=== PATIENT | male | born 1995 | race Caucasian/White ===

== ENCOUNTER 2016-11-22 17:28 | Emergency (ER) | payer SELFPAY ==
[~2016-11-22] VITALS: Wt 87.1 kg
[~2016-11-22 17:28] MED LIST: ADVAIR 250/501 EA INH; ALAVERT10 MG PO; AMOXIL500 MG PO; Flovent 220 M220 MCG INH; NAPROSYN375 MG PO; PEN-VK500 MG PO; PHENERGAN W/DM120 ML PO; PROVENTIL0.09 MG/AC IH; SINGULAIR10 MG PO; ZYRTEC5 MG PO
[2016-11-22 17:54] VITALS: BP 128/74
[2016-11-22] MEDS ORDERED: IBUPROFEN600 MG PO (20:01)
== END 2016-11-22 20:30 | disposition home or self-care (01) ==
LOC: ED 17:28
DX: M25.462 Effusion, left knee (principal); F17.200 Nicotine dependence, unspecified, uncomplicated; X50.9XXA Other and unspecified overexertion or strenuous movements or postures, initial encounter; Y93.61 Activity, american tackle football; Y92.321 Football field as the place of occurrence of the external cause; Y99.9 Unspecified external cause status

== ENCOUNTER 2016-12-26 13:37 | Emergency (ER) | payer SELFPAY ==
[~2016-12-26] VITALS: Ht 190.5 cm; Wt 88.5 kg
[~2016-12-26 13:37] MED LIST changes: +IBUPROFEN600 MG PO
[2016-12-26 13:59] VITALS: BP 140/74
[2016-12-26] MEDS ORDERED: CEFADROXIL500 M1 PO (14:29)
== END 2016-12-26 14:44 | disposition home or self-care (01) ==
LOC: ED 13:37
DX: N48.29 Other inflammatory disorders of penis (principal); Z20.2 Contact with and (suspected) exposure to infections with a predominantly sexual mode of transmission; F17.200 Nicotine dependence, unspecified, uncomplicated

== ENCOUNTER 2018-03-27 22:12 | Emergency (ER) | payer SELFPAY ==
[~2018-03-27] VITALS: Ht 187.9 cm; Wt 83.9 kg
[~2018-03-27 22:12] MED LIST changes: +CEFADROXIL500 M1 PO
[2018-03-27 22:50] LABS: BASO # 0.1 10*3/uL (0.0-0.1); BASO % 0.4 % (0.0-1.0); EOS % 0.1 % (1.0-4.0); HEMATOCRIT 43.7 % (42.0-52.0); HEMOGLOBIN 14.5 g/dl (14.0-18.0); LYMPH # 2.4 10*3/uL (1.3-4.4); LYMPH % 14.5 % (27.0-41.0); MEAN CELL VOLUME 93.6 fl (80.0-94.0); MEAN CORPUSCULAR HGB CONC 33.2 g/dl (33.0-37.0); MEAN PLATELET VOLUME 9.5 fl (9.6-12.3); MONO # 1.4 10*3/uL (0.1-1.0); MONO % 8.5 % (3.0-9.0); NEUT # 12.4 10*3/uL (2.3-7.9); NEUT % 76.2 % (47.0-73.0); PLATELET COUNT AUTOMATED 244 10*3/uL (130-400); RED BLOOD COUNT 4.67 10*6/uL (4.50-5.90); RED CELL DISTRI WIDTH 15.3 % (0-14.5); WHITE BLOOD COUNT 16.2 10*3/uL (4.8-10.8)
[2018-03-27 23:01] LABS: ACT PARTIAL THROMBO TIME 21.8 SECONDS (19.5-32.1)
[2018-03-27 23:07] LABS: ALBUMIN 4.2 gm/dl (3.1-4.5); ALKALINE PHOSPHATASE 67 U/L (45-117); BUN 11 mg/dl (7-24); CHLORIDE 105 mmol/L (98-107); CREATININE 1.03 mg/dL (0.70-1.30); POTASSIUM 3.8 mmol/L (3.5-5.1); SGOT/AST 10 IU/L (3-35); SGPT/ALT 17 U/L (12-78); SODIUM 141 mmol/L (136-145); TOTAL PROTEIN 7.5 gm/dL (6.4-8.2)
[2018-03-27 23:08] LABS: ETHYL ALCOHOL < 3.0 mg/dl (<3)
[2018-03-28 00:45] VITALS: BP 108/778
[2018-03-28] MEDS ORDERED: Motrin,Rufen800 MG PO (01:06)
== END 2018-03-28 01:19 | disposition home or self-care (01) ==
LOC: ED 22:12
PROVIDERS: Emergency Medicine Emergency Medical Services
DX: S30.1XXA Contusion of abdominal wall, initial encounter (principal); S60.222A Contusion of left hand, initial encounter; S89.92XA Unspecified injury of left lower leg, initial encounter; R07.81 Pleurodynia; M25.551 Pain in right hip; M54.2 Cervicalgia; M54.9 Dorsalgia, unspecified; R51 Headache; V86.55XA Driver of 3- or 4- wheeled all-terrain vehicle (ATV) injured in nontraffic accident, initial encounter; Y93.I9 Activity, other involving external motion; Y92.828 Other wilderness area as the place of occurrence of the external cause; Y99.8 Other external cause status

== ENCOUNTER 2018-04-23 21:35 | Emergency (ER) | payer SELFPAY ==
[~2018-04-23] VITALS: Ht 190.5 cm; Wt 88.5 kg
--- NOTE | ~2018-04-23 | EKG ---
[place], [place] ELECTROCARDIOGRAM REPORT NAME: MARIZA HAHN UNIT #: [id number] ROOM: DOCTOR: EPIPHVALORIE DRAFT REPORT BIRTHDATE: [birth year] [facility] Test Date: 2018-04-23 Test Time: 21:59:57 Pat Name: MARIZA HAHN Department: ER Room: Gender: [employer] Operator: Elizabeth Edmondson : 1995 Requested By: VICKY OVIEDO Order Number: [id number] Reading MD: Sage Kowalski MD Measurements Intervals [place] Rate: 129 P: 73 CO: 125 QRS: 82 QRSD: 90 T: 42 QT: 304 QTc: 446 Interpretive Statements Sinus tachycardia ST elev, probable normal early repol pattern Electronically Signed On 05-01-2018 23:49:53 PST by Sage Kowalski MD CM:EKGRPT:ELECTROCARDIOGRAM REPORT [id number] VICKY NAIDU DRAFT REPORT VICKY OVIEDO
[~2018-04-23 21:35] MED LIST changes: +Motrin,Rufen800 MG PO
[2018-04-23 22:04] LABS: HEMATOCRIT 49.5 % (42.0-52.0); MEAN CELL VOLUME 95.7 fl (80.0-94.0); MEAN CORPUSCULAR HGB 30.9 pg (27.0-31.0); MEAN CORPUSCULAR HGB CONC 32.3 g/dl (33.0-37.0); MEAN PLATELET VOLUME 9.5 fl (9.6-12.3); PLATELET COUNT AUTOMATED 282 10*3/uL (130-400); RED BLOOD COUNT 5.17 10*6/uL (4.50-5.90); RED CELL DISTRI WIDTH 14.1 % (0-14.5); WHITE BLOOD COUNT 25.6 10*3/uL (4.8-10.8)
[2018-04-23 22:21] LABS: ALBUMIN 4.2 gm/dl (3.1-4.5); ALKALINE PHOSPHATASE 76 U/L (45-117); BUN 15 mg/dl (7-24); CHLORIDE 105 mmol/L (98-107); CREATININE 1.23 mg/dL (0.70-1.30); SGOT/AST 31 IU/L (3-35); SGPT/ALT 33 U/L (12-78); SODIUM 142 mmol/L (136-145); TOTAL PROTEIN 7.6 gm/dL (6.4-8.2)
[2018-04-23 22:23] LABS: PLATELET SUFFICIENCY NORMAL (NORMAL); TOTAL CELLS COUNTED 100 #CELLS
[2018-04-23 22:28] LABS: ACETAMINOPHEN (TYLENOL) < 5.0 ug/ml (10-30)
[2018-04-23 22:56] LABS: BILIRUBIN NEGATIVE (NEGATIVE); BLOOD 1+ (NEGATIVE); CLARITY SL CLOUDY (CLEAR); COLOR YELLOW (YELLOW); GLUCOSE NEGATIVE (NEGATIVE); KETONE NEGATIVE (NEGATIVE); LEUKO ESTERASE NEGATIVE (NEGATIVE); NITRITE NEGATIVE (NEGATIVE); SPECIFIC GRAVITY >= 1.030 (1.005-1.030); UROBILINOGEN 0.2 E.U./dl (0.2-1.0)
[2018-04-23 23:05] LABS: URINE AMPHETAMINES > 1000 (1000ng/ml); URINE BARBITURATES < 200 (200ng/ml); URINE BENZODIAZEPINES < 200 (200ng/ml); URINE CANNABINOIDS (THC) < 50 (50ng/ml); URINE COCAINE > 300 (300ng/ml); URINE METHADONE < 300 (300ng/ml); URINE OPIATES > 300 (300ng/ml); URINE PHENCYCLIDINE < 25 (25ng/ml)
[2018-04-23 23:09] LABS: BACTERIA TRACE; RBC 21-30 rbc/hpf (0-2)
[2018-04-24 02:43] VITALS: BP 108/52
== END 2018-04-24 02:53 | disposition left against medical advice (07) ==
LOC: ED 21:35
PROVIDERS: Student in an Organized Health Care Education/Training Program
DX: T40.1X1A Poisoning by heroin, accidental (unintentional), initial encounter (principal); R41.82 Altered mental status, unspecified; R11.2 Nausea with vomiting, unspecified; E16.2 Hypoglycemia, unspecified; D72.829 Elevated white blood cell count, unspecified; F19.10 Other psychoactive substance abuse, uncomplicated; Y92.89 Other specified places as the place of occurrence of the external cause

== ENCOUNTER 2018-10-23 16:22 | Emergency (ER) | payer OTHER ==
[~2018-10-23] VITALS: Ht 190.5 cm; Wt 88.5 kg
[2018-10-23 16:22] VITALS: BP 127/85
== END 2018-10-23 17:30 | disposition left against medical advice (07) ==
LOC: ED 16:22
DX: F19.10 Other psychoactive substance abuse, uncomplicated (principal)

== ENCOUNTER 2018-11-05 16:00 | Emergency (ER) | payer OTHER ==
[~2018-11-05] VITALS: Ht 190.5 cm; Wt 83.9 kg
[2018-11-05 16:03] VITALS: BP 129/86
== END 2018-11-05 16:51 | disposition home or self-care (01) ==
LOC: ED 16:00
DX: F19.10 Other psychoactive substance abuse, uncomplicated (principal); M79.89 Other specified soft tissue disorders; Z02.89 Encounter for other administrative examinations; Z79.899 Other long term (current) drug therapy

== ENCOUNTER 2018-12-23 21:25 | Emergency (ER) | payer OTHER ==
[~2018-12-23] VITALS: Ht 190.5 cm; Wt 97.5 kg
[2018-12-23 21:28] VITALS: BP 151/82
[2018-12-23] MEDS ORDERED: CLEOCIN HCL300 MG PO (22:16)
== END 2018-12-23 22:35 | disposition home or self-care (01) ==
LOC: ED 21:25
DX: L03.113 Cellulitis of right upper limb (principal); F19.20 Other psychoactive substance dependence, uncomplicated; F12.90 Cannabis use, unspecified, uncomplicated; F14.90 Cocaine use, unspecified, uncomplicated

== ENCOUNTER 2022-11-03 21:08 | Inpatient (IN) | payer MEDICAID ==
[~2022-11-03] VITALS: Ht 190.5 cm; Wt 96.2 kg
[~2022-11-03 21:08] MED LIST changes: +CLEOCIN HCL300 MG PO
[2022-11-03 21:50] VITALS: BP 121/71
[2022-11-03 22:30] LABS: HEMATOCRIT 36.5 % (42.0-52.0); MEAN CELL VOLUME 92.4 fl (80.0-94.0); MEAN CORPUSCULAR HGB 31.1 pg (27.0-31.0); MEAN CORPUSCULAR HGB CONC 33.7 g/dl (33.0-37.0); MEAN PLATELET VOLUME 9.5 fl (9.6-12.3); PLATELET COUNT AUTOMATED 343 10*3/uL (130-400); RED BLOOD COUNT 3.95 10*6/uL (4.50-5.90); RED CELL DISTRI WIDTH 13.9 % (0-14.5); WHITE BLOOD COUNT 13.5 10*3/uL (4.8-10.8)
[2022-11-03 22:39] LABS: MANUAL DIFF REFLEX YES
[2022-11-03 22:48] LABS: INTERNATIONAL NORM RATIO 1.1 (2.0-3.5)
[2022-11-03 22:55] LABS: ALKALINE PHOSPHATASE 81 U/L (46-116); BUN 7 mg/dl (9-23); CHLORIDE 99 mmol/L (98-107); POTASSIUM 3.6 mmol/L (3.4-5.1); SGPT/ALT 90 U/L (10-49); TOTAL PROTEIN 7.1 gm/dL (6.0-8.0)
[2022-11-03 23:04] LABS: BURR CELLS FEW; OVALOCYTES FEW; PLATELET SUFFICIENCY NORMAL (NORMAL); POLYCHROMASIA SLIGHT; TOTAL CELLS COUNTED 100 #CELLS
[2022-11-04 03:57] VITALS: BP 101/54
[2022-11-04 05:00] VITALS: BP 109/46
[2022-11-04 06:22] LABS: ALKALINE PHOSPHATASE 81 U/L (46-116); BUN 8 mg/dl (9-23); CHLORIDE 104 mmol/L (98-107); POTASSIUM 3.7 mmol/L (3.4-5.1); SGPT/ALT 79 U/L (10-49); TOTAL PROTEIN 6.8 gm/dL (6.0-8.0)
[2022-11-04 06:23] LABS: BASO # 0.1 10*3/uL (0.0-0.1); BASO % 0.5 % (0.0-1.0); EOS # 0.4 10*3/uL (0.0-0.4); EOS % 3.1 % (1.0-4.0); HEMATOCRIT 37.4 % (42.0-52.0); MEAN CORPUSCULAR HGB 30.7 pg (27.0-31.0); MEAN CORPUSCULAR HGB CONC 32.6 g/dl (33.0-37.0); MEAN PLATELET VOLUME 10.1 fl (9.6-12.3); MONO # 1.4 10*3/uL (0.1-1.0); NEUT % 58.3 % (47.0-73.0); PLATELET COUNT AUTOMATED 325 10*3/uL (130-400); RED BLOOD COUNT 3.98 10*6/uL (4.50-5.90); RED CELL DISTRI WIDTH 14.3 % (0-14.5)
[2022-11-04 08:00] VITALS: BP 125/59
[2022-11-04 12:00] VITALS: BP 114/54
[2022-11-04 16:00] VITALS: BP 101/69
[2022-11-04 20:00] VITALS: BP 99/58
[2022-11-05] VITALS (10 sets, daily range): BP systolic 108–135; BP diastolic 42–80
[2022-11-05 07:13] LABS: BASO # 0.1 10*3/uL (0.0-0.1); BASO % 0.5 % (0.0-1.0); EOS # 0.4 10*3/uL (0.0-0.4); EOS % 3.2 % (1.0-4.0); HEMATOCRIT 40.4 % (42.0-52.0); LYMPH # 2.1 10*3/uL (1.3-4.4); LYMPH % 17.2 % (27.0-41.0); MEAN CELL VOLUME 95.1 fl (80.0-94.0); MEAN CORPUSCULAR HGB 31.3 pg (27.0-31.0); MEAN CORPUSCULAR HGB CONC 32.9 g/dl (33.0-37.0); MEAN PLATELET VOLUME 9.5 fl (9.6-12.3); MONO # 1.1 10*3/uL (0.1-1.0); MONO % 8.9 % (3.0-9.0); NEUT # 8.5 10*3/uL (2.3-7.9); NEUT % 68.9 % (47.0-73.0); PLATELET COUNT AUTOMATED 406 10*3/uL (130-400); RED BLOOD COUNT 4.25 10*6/uL (4.50-5.90); RED CELL DISTRI WIDTH 14.6 % (0-14.5); WHITE BLOOD COUNT 12.3 10*3/uL (4.8-10.8)
[2022-11-05 07:48] LABS: BUN 8 mg/dl (9-23); CHLORIDE 105 mmol/L (98-107); POTASSIUM 4.4 mmol/L (3.4-5.1)
[2022-11-05 16:48] LABS: HEMATOCRIT 40.1 % (42.0-52.0)
[2022-11-06] VITALS: BP 108/69
[2022-11-06 05:32] LABS: HBSAG Negative (Negative); HEP B CORE AB, IGM Negative (Negative)
[2022-11-06 07:42] LABS: BASO # 0.1 10*3/uL (0.0-0.1); BASO % 0.8 % (0.0-1.0); EOS # 0.4 10*3/uL (0.0-0.4); EOS % 4.6 % (1.0-4.0); HEMATOCRIT 38.1 % (42.0-52.0); LYMPH % 31.7 % (27.0-41.0); MEAN CELL VOLUME 92.3 fl (80.0-94.0); MEAN CORPUSCULAR HGB 31.5 pg (27.0-31.0); MEAN CORPUSCULAR HGB CONC 34.1 g/dl (33.0-37.0); MEAN PLATELET VOLUME 9.2 fl (9.6-12.3); MONO # 0.9 10*3/uL (0.1-1.0); MONO % 9.7 % (3.0-9.0); NEUT # 4.9 10*3/uL (2.3-7.9); NEUT % 50.9 % (47.0-73.0); PLATELET COUNT AUTOMATED 428 10*3/uL (130-400); RED BLOOD COUNT 4.13 10*6/uL (4.50-5.90); RED CELL DISTRI WIDTH 14.3 % (0-14.5); WHITE BLOOD COUNT 9.6 10*3/uL (4.8-10.8)
[2022-11-06 08:00] VITALS: BP 126/69
[2022-11-06 08:40] LABS: BUN 6 mg/dl (9-23); CHLORIDE 106 mmol/L (98-107); POTASSIUM 4.1 mmol/L (3.4-5.1)
[2022-11-06 12:00] VITALS: BP 101/71
[2022-11-06] MEDS ORDERED: LEVOFLOXACIN750 M2 PO ×2 (15:46)
[2022-11-06] MEDS ORDERED: DALVANCE500 MG IV ×2 (15:46)
[2022-11-06] MEDS ORDERED: METRONIDAZOLE500 M1 PO ×2 (15:46)
[2022-11-06 16:00] VITALS: BP 120/73
[2022-11-06 20:00] VITALS: BP 125/69
[2022-11-07] VITALS: BP 113/61
[2022-11-07 07:00] LABS: BASO # 0.1 10*3/uL (0.0-0.1); BASO % 0.9 % (0.0-1.0); EOS # 0.4 10*3/uL (0.0-0.4); EOS % 4.1 % (1.0-4.0); HEMATOCRIT 39.8 % (42.0-52.0); LYMPH # 3.2 10*3/uL (1.3-4.4); LYMPH % 32.2 % (27.0-41.0); MEAN CELL VOLUME 94.8 fl (80.0-94.0); MEAN CORPUSCULAR HGB 30.7 pg (27.0-31.0); MEAN CORPUSCULAR HGB CONC 32.4 g/dl (33.0-37.0); MEAN PLATELET VOLUME 9.2 fl (9.6-12.3); MONO # 0.9 10*3/uL (0.1-1.0); MONO % 8.6 % (3.0-9.0); NEUT # 5.1 10*3/uL (2.3-7.9); NEUT % 51.5 % (47.0-73.0); PLATELET COUNT AUTOMATED 422 10*3/uL (130-400); RED CELL DISTRI WIDTH 14.4 % (0-14.5); WHITE BLOOD COUNT 9.9 10*3/uL (4.8-10.8)
[2022-11-07 07:17] LABS: CHLORIDE 104 mmol/L (98-107); POTASSIUM 4.1 mmol/L (3.4-5.1)
[2022-11-07 07:23] LABS: BUN < 5 mg/dl (9-23)
[2022-11-07 08:00] VITALS: BP 130/72
[2022-11-07] MEDS ORDERED: DALVANCE500 MG IV (10:48)
[2022-11-07 12:00] VITALS: BP 128/58
[2022-11-07] MEDS ORDERED: HYDROCODONE-AC1 EAC1 PO (14:56)
[2022-11-07] MEDS ORDERED: METRONIDAZOLE500 M1 PO (14:56)
[2022-11-07] MEDS ORDERED: LEVOFLOXACIN750 M2 PO (14:56)
[2022-11-07 15:58] VITALS: BP 115/66
[2022-11-08 20:07] LABS: HEPATITIS C ANTIBODY Reactive (Non Reactive)
== END 2022-11-07 16:24 | disposition home or self-care (01) | DRG 720 ==
LOC: ED 21:08 → 4E 11-04 03:46 → EDHOLD 11-04 03:46 → 4E 11-04 04:45
PROVIDERS: Family Medicine; Internal Medicine Infectious Disease; Nurse Practitioner Family; Student in an Organized Health Care Education/Training Program; Surgery; ADMIT Internal Medicine; ATTEND Internal Medicine
PROC: 0Y900ZZ Drainage of Right Buttock, Open Approach (ICD-10-PCS; principal; 2022-11-05)
DX: A41.9 Sepsis, unspecified organism (principal); K61.1 Rectal abscess; E44.0 Moderate protein-calorie malnutrition; E87.1 Hypo-osmolality and hyponatremia; L03.317 Cellulitis of buttock; D64.9 Anemia, unspecified; L02.31 Cutaneous abscess of buttock; B96.20 Unspecified Escherichia coli [E. coli] as the cause of diseases classified elsewhere; B95.62 Methicillin resistant Staphylococcus aureus infection as the cause of diseases classified elsewhere; Z68.26 Body mass index [BMI] 26.0-26.9, adult

== ENCOUNTER → 2022-11-09 | Outpatient (CLI) | payer MEDICAID ==
[~2022-11-09] MED LIST changes: +DALVANCE500 MG IV; +HYDROCODONE-AC1 EAC1 PO; +LEVOFLOXACIN750 M2 PO; +METRONIDAZOLE500 M1 PO
== END ==
LOC: WOUNDCARE 00:55
PROVIDERS: ATTEND Nurse Practitioner Family
DX: Z53.21 Procedure and treatment not carried out due to patient leaving prior to being seen by health care provider (principal)

== ENCOUNTER 2023-06-06 16:32 | Emergency (ER) | payer MEDICAID ==
[~2023-06-06] VITALS: Ht 190.5 cm; Wt 83.9 kg
[2023-06-06 17:05] VITALS: BP 134/88
[2023-06-06] MEDS ORDERED: ACETAMINOPHEN 325 MG TAB PO ONE (17:15)
[2023-06-06] MEDS ORDERED: CEPHALEXIN 500 MG CAP PO ONE (17:15)
[2023-06-06] MEDS ORDERED: CEPHALEXIN500 M1 PO (19:35)
== END 2023-06-06 19:52 ==
LOC: ED 16:32
DX: S50.852A Superficial foreign body of left forearm, initial encounter (principal); W25.XXXA Contact with sharp glass, initial encounter; Y93.89 Activity, other specified; Y92.149 Unspecified place in prison as the place of occurrence of the external cause; Y99.8 Other external cause status

== ENCOUNTER 2024-09-15 19:41 | Emergency (ER) | payer MEDICAID ==
[~2024-09-15] VITALS: Ht 185.4 cm; Wt 72.6 kg
[~2024-09-15 19:41] MED LIST changes: +CEPHALEXIN500 M1 PO
[2024-09-15 19:52] VITALS: BP 130/86
[2024-09-15] MEDS ORDERED: Buprenorphine Hydrochloride 2 MG TAB SL ONE ×2 (20:05→20:50)
[2024-09-15 20:14] LABS: BASO % 0.3 % (0.0-1.0); EOS # 0.1 10*3/uL (0.0-0.4); EOS % 0.6 % (1.0-4.0); HEMATOCRIT 35.2 % (42.0-52.0); MEAN CELL VOLUME 87.8 fl (80.0-94.0); MEAN CORPUSCULAR HGB 28.7 pg (27.0-31.0); MEAN CORPUSCULAR HGB CONC 32.7 g/dl (33.0-37.0); MONO # 0.8 10*3/uL (0.1-1.0); MONO % 6.6 % (3.0-9.0); NEUT # 8.4 10*3/uL (2.3-7.9); NEUT % 70.9 % (47.0-73.0); PLATELET COUNT AUTOMATED 223 10*3/uL (130-400); RED BLOOD COUNT 4.01 10*6/uL (4.50-5.90); RED CELL DISTRI WIDTH 14.2 % (0-14.5); WHITE BLOOD COUNT 11.8 10*3/uL (4.8-10.8)
[2024-09-15 20:36] LABS: ALKALINE PHOSPHATASE 176 U/L (46-116); BUN 12 mg/dl (9-23); CHLORIDE 109 mmol/L (98-107); POTASSIUM 3.8 mmol/L (3.4-5.1); SGPT/ALT 289 U/L (5-49); TOTAL PROTEIN 6.4 gm/dL (6.0-8.0)
[2024-09-15] MEDS ORDERED: LORazepam 1 MG TAB PO ONE (20:50)
== END 2024-09-15 22:30 | disposition home or self-care (01) ==
LOC: ED 19:41
PROVIDERS: Internal Medicine
DX: D64.9 Anemia, unspecified (principal); F11.20 Opioid dependence, uncomplicated; E44.0 Moderate protein-calorie malnutrition; R94.5 Abnormal results of liver function studies; J45.909 Unspecified asthma, uncomplicated; Z79.899 Other long term (current) drug therapy

== ENCOUNTER 2024-12-31 22:23 | Emergency (ER) | payer MEDICAID ==
[~2024-12-31] VITALS: Ht 190.5 cm; Wt 87.1 kg
[~2024-12-31 22:23] MED LIST changes: +BUPRENORPHINE-1 EAC1 SL; +BUPROPION HYDR150 M3 PO; +VIBRAMYCIN100 MG PO
[2024-12-31 22:28] VITALS: BP 130/89
[2024-12-31 23:45] LABS: BASO # 0.1 10*3/uL (0.0-0.1); BASO % 0.6 % (0.0-1.0); EOS # 0.2 10*3/uL (0.0-0.4); EOS % 2.2 % (1.0-4.0); MEAN CELL VOLUME 89.3 fl (80.0-94.0); MEAN CORPUSCULAR HGB 29.1 pg (27.0-31.0); MEAN PLATELET VOLUME 8.9 fl (9.6-12.3); MONO # 0.8 10*3/uL (0.1-1.0); MONO % 9.1 % (3.0-9.0); NEUT # 5.6 10*3/uL (2.3-7.9); NEUT % 65.6 % (47.0-73.0); NUCLEATED RED BLOOD CELL 0.0 % (0.0-0.0); NUCLEATED RED BLOOD CELL 0.0 10*3/uL (0.0-0.0); PLATELET COUNT AUTOMATED 226 10*3/uL (130-400); RED CELL DISTRI WIDTH 13.8 % (0-14.5)
[2025-01-01 00:05] LABS: BUN 10 mg/dl (9-23); CPK 133 U/L (34-171)
== END 2025-01-01 02:33 | disposition left against medical advice (07) ==
LOC: ED 22:23
PROVIDERS: Emergency Medicine
DX: F13.20 Sedative, hypnotic or anxiolytic dependence, uncomplicated (principal); F17.290 Nicotine dependence, other tobacco product, uncomplicated; Z79.899 Other long term (current) drug therapy; Z53.29 Procedure and treatment not carried out because of patient's decision for other reasons

== ENCOUNTER 2025-01-10 00:37 | Emergency (ER) | payer MEDICAID ==
[2025-01-10 00:47] VITALS: BP 111/89
[2025-01-10] MEDS ORDERED: Naloxone Hydrochloride 2 MG/2 ML SYR ONE (01:16)
== END 2025-01-10 00:58 | disposition left against medical advice (07) ==
LOC: ED 00:37
DX: F11.129 Opioid abuse with intoxication, unspecified (principal); Z53.29 Procedure and treatment not carried out because of patient's decision for other reasons